=== PATIENT | male | born 1970 | race Caucasian/White ===

== ENCOUNTER 2016-11-13 01:15 | Observation (INO) ==
[2016-11-13] MEDS ORDERED: *HR* Labetalol 20 MG/4 ML SYRINGE IVP ONE (02:08)
--- NOTE | 2016-11-13 02:11 | Emergency Department Note ---
Disposition Clinical Impression: Vision loss of left eye Headache Qualifiers: Headache type: unspecified Headache chronicity pattern: unspecified pattern Intractability: not intractable Qualified Code(s): R51 - Headache Hypertension Qualifiers: Hypertension type: essential hypertension Qualified Code(s): I10 - Essential ( primary) hypertension Disposition: Admitted As Inpatient Condition: Good Referrals: NO,PCP [Primary Care Provider] - Forms: Work/School Release, ED Satisfaction Letter General Adult HPI - General Chief complaint: ED General Medical Stated complaint: high blood presure Time Seen by Provider: 11/13/16 01:55 Source: patient Mode of arrival: private vehicle Limitations: no limitations Nursing Notes Reviewed: Yes Vital Signs Reviewed: Yes - History of Present Illness HPI Narrative: Patient presents to the ED with complaint of high blood pressure. He was seen in this ED earlier today for extremely high blood pressure, headache and blurred vision in his left eye for a week. Head CT, labs and EKG were done at that time and were normal. He was set up for outpatient follow-up with ophthalmology tomorrow. He was started on metoprolol 50 mg twice a day after receiving labetalol here in the ED with improvement in his BP. States since he returned to [facility] his headache had gotten somewhat better and his lightheadedness had improved. He took his evening dose of metoprolol at 10 PM. States they checked his blood pressure shortly after that and it was 201/131. He was brought back to the ED for further evaluation. States headache and lightheadedness are still present and worsening again. No change in the vision in his left eye. No new symptoms. Blood pressure on arrival here was 184/126. Pain Scale: 0 - Related Data Previous Rx's Medication Instructions Recorded Metoprolol [Lopressor] 50 mg PO BID #30 tablet 11/12/16 Allergies Allergy/AdvReac Type Severity Reaction Status Date / Time No Known Allergies Allergy Verified 11/13/16 01:17 Constitutional: Denies: fever, chills, weakness, weight change Eyes: Reports: vision change. Denies: eye pain, eye discharge ENT ED: Denies: ear pain, throat pain, dental pain, hearing loss, epistaxis, congestion, dysphagia Cardiovascular: Denies: chest pain, palpitations, dyspnea on exertion, edema, syncope Respiratory: Denies: cough, dyspnea, wheezes, hemoptysis, stridor Gastrointestinal: Denies: abdominal pain, nausea, vomiting, diarrhea, constipation, hematemesis, melena, hematochezia Genitourinary: Denies: urgency, dysuria, frequency, hematuria Musculoskeletal: Denies: back pain, neck pain, arthralgia, myalgia Integumentary: Denies: rash, abrasion, lesions Neurological: Reports: headache. Denies: weakness, numbness, paresthesias, confusion, abnormal gait, vertigo Psychiatric: Denies: anxiety, depression, suicidal thoughts, homicidal thoughts , auditory hallucinations, visual hallucinations Endocrine: Denies: fatigue Hematological/Lymphatic: Denies: easy bleeding, easy bruising Allergic/Immunologic: Denies: facial swelling, urticaria Past Medical History - Past Medical History Medical history: Reports: hypertension, kidney stones, other Psychiatric history: Reports: no psych history - Social History Smoking Status: Current every day smoker Smokeless Tobacco Status: No Alcohol use: Reports: none Drug use: Reports: none Physical Exam - General Limitations: no limitations General appearance: alert, in no apparent distress - Head Head exam: atraumatic, normocephalic, normal inspection - Eye Eye exam: Present: normal appearance, PERRL, EOMI - ENT ENT exam: normal exam, normal oropharynx, mucous membranes moist - Neck Neck exam: Present: normal inspection, full ROM, trachea midline - Chest Chest inspection: Present: normal inspection, symmetric chest wall rise - Respiratory Respiratory exam: Present: normal lung sounds bilaterally - Cardiovascular Cardiovascular exam: Present: regular rate, normal rhythm, normal heart sounds - Abdominal Exam Abdominal exam: Present: soft, Non-Tender. Absent: tenderness, distention, guarding, rebound, rigidity - Extremities Exam Extremities exam: Present: normal inspection, full ROM. Absent: tenderness, pedal edema - Back Exam Back exam: Present: normal inspection, full ROM. Absent: tenderness - Neurological Exam Neurological exam: Present: alert, oriented X3, CN II-XII intact, reflexes normal. Absent: motor sensory deficit - Expanded Neurological Exam Speech: Present: fluid speech Motor strength - LUE: 5/5 Motor strength - RUE: 5/5 Motor strength - LLE: 5/5 Motor strength - RLE: 5/5 Course Course Narrative: Patient presents to the ED for recurrent hypertension and persistent headache and lightheadedness. He was given a dose of IV labetalol on arrival with initial improvement in blood pressure to 151/96. He was given Tylenol for his headache with some improvement. As he was continued to be monitored his blood pressure started increasing again, climbing to 162/114 followed by 174/110. He still has a persistent headache. Given his symptomatic hypertensive urgency patient will require admission for more aggressive blood pressure control. Discussed admission with the patient who is agreeable. I spoke to the hospitalist government services professional, Dr. Giron who has accepted the patient. - Reevaluation(s) Reevaluation #1: Patient is a resident at [facility] for [facility] and the staff member here with him has requested that their facility be notified when he is ready to be discharged and/or if he were to sign out AGAINST MEDICAL ADVICE. Time: 04:04 Vital Signs Temperature 97.1 F L 11/13/16 01:16 Pulse Rate 68 11/13/16 01:16 Respiratory Rate 17 11/13/16 01:16 Blood Pressure 184/124 11/13/16 01:16 O2 Sat by Pulse Oximetry 99 11/13/16 01:16 Temperature 98.8 F 11/13/16 03:31 Pulse Rate 67 11/13/16 03:31 Respiratory Rate 20 11/13/16 03:31 Blood Pressure 174/110 11/13/16 03:31 O2 Sat by Pulse Oximetry 100 11/13/16 03:31 Oxygen Delivery Oxygen Delivery Room Air Medical Decision Making - Differential Diagnosis Essential hypertension, hypertensive urgency - Medical Records Medical records reviewed: Yes I reviewed the patient's medical records.
[2016-11-13] MEDS ORDERED: Naloxone 0.4 MG/ML INJ IVP PRN ×2 (03:45→04:55)
[2016-11-13] MEDS ORDERED: *HR* Labetalol 20 MG/4 ML SYRINGE IVP PRN (04:55)
--- NOTE | 2016-11-13 11:24 | Internal Med History&Physical ---
Date of Encounter: 11/13/16 Time of Encounter: 10:30 Assessment and Plan (1) Hypertension Current visit: Yes Status: Chronic Blood pressures have improved with treatment in the emergency room. Continue metoprolol and add Norvasc to further improve blood pressure. Qualifiers: Hypertension type: essential hypertension Qualified Code(s): I10 - Essential (primary) hypertension (2) Headache Current visit: Yes Status: Acute Suspect due in part to elevated blood pressure. We will start him on Ultram and treat blood pressure as per above. Head CT in the emergency room showed no significant pathology. Qualifiers: Headache type: unspecified Headache chronicity pattern: unspecified pattern Intractability: not intractable Qualified Code(s): R51 - Headache (3) Hyperuricemia Current visit: Yes Status: Acute Will start him on allopurinol since uric acid level was elevated at .15 April 2014 and he has had multiple gout attacks. Repeat uric acid level will be done today and the patient can have follow-up at his appointment with Lindsay Dennison CNP next week. (4) Vision loss of left eye Current visit: Yes Status: Acute He is scheduled to see admissions gate attendant later today. Internal Medicine - H&P: HPI Chief complaint: Hypertension and left eye vision loss Admitted From: Home Plans for Post Hospital Care: Home History of present illness: Mr. Salazar is a 46 year old male who came to emergency room yesterday with complaints of headache and vision loss. He had been sent to Lindsay Dennison's office from a dentist office where he presented for dental work but was found to have markedly elevated blood pressure. The hypertension was confirmed at Lindsay Dennison's office and he was sent to emergency room where he was found to have markedly elevated blood pressure and elevated left eye IOP at 20 and 25 mm. He was given a prescription for metoprolol 50 mg twice a day and an appointment was made to see an admissions gate attendant in [facility] on November 13 at 2:30 PM. He returned to emergency room a few hours later complaining of ongoing headache. Blood pressure was again elevated. He was treated and admitted to [facility] for ongoing care needs. He states his headache has improved but his vision has not significantly changed from yesterday. He has previously been diagnosed with high blood pressure but has chosen not to follow with a PCP and take medication. He denies other cardiovascular problems such as CT heart failure chest pain DVT or pulmonary embolus. Past Med Surg Social Fam HX - Past Medical History Medical history: hypertension, kidney stones, other Psychiatric history: no psych history - Social History Smoking Status: Current every day smoker Packs per day: 1 PACK Smokeless Tobacco Status: No Alcohol use: none Drug use: none Internal Medicine - H&P: Meds Metoprolol [Lopressor] 50 mg PO BID #30 tablet 11/12/16 [Rx] Allergies No Known Allergies Allergy (Verified 11/13/16 01:17) All Systems PM: A 10-system review of systems was performed and is negative for pertinent findings except as documented above in the HPI. 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 Cardiovascular: As per history of present illness Respiratory: He has smoked since age 11 up to 1 pack per day. He has not had PFTs and does not wear home oxygen GI: He denies disorders of his liver gallbladder or exocrine pancreas : He had kidney stones in 2010 without recurrence. He denies other kidney bladder prostate disorders Neurologic: He denies large distribution strokes or seizures. CT of head done in the emergency room yesterday showed no significant pathology Endocrine: He denies diabetes or thyroid disease. Lipid profile done 2013 showed total cholesterol elevated 277, triglycerides 233, LDL 190, and total/HDL ratio 6.9. Hematology/oncology: She denies blood disorders cancers or anemia Psychiatric: He has diagnoses of anxiety and depression but does not use medication because he does not follow regularly with a PCP. Musk skeletal: He has been diagnosed with gout and has had multiple gout attacks. He has chosen not to take uric acid lowering medication and not follow with a PCP. He denies other bone joint or muscle disorders. - Constitutional Vitals: Temp Pulse Resp BP Pulse Ox 98.6 F 71 16 142/86 98 11/13/16 10:54 11/13/16 10:54 11/13/16 10:54 11/13/16 10:54 11/13/16 10:54 Exam: Gen.: He is a well-developed well-nourished male who appears in minimal discomfort at present time HEENT: Head is atraumatic and normocephalic. Eyes: EOMI. There is no scleral icterus. Mouth: Mucosa is moist Neck: Supple and nontender. There is no thyromegaly or adenopathy noted. Heart: Regular without murmurs gallops or ectopics Lungs: No wheezes or crackles are heard Abdomen: Soft and nontender. No masses or guarding are noted. Extremities: There is no cyanosis edema or clubbing noted. Dorsalis pedis and posterior tibial pulses are 2 over 2 bilaterally. Neurologic: Mental status: He is talkative and a good historian. Cranial nerves : Smile is symmetric. Forehead wrinkles bilaterally. Tongue protrudes midline. EOMI. Motor: There is no pronator drift. Cerebellar: Finger to nose is intact bilaterally Skin: Warm and dry - VTE Reasons for not Prescribing Prophylaxis: Treatment not Indicated - Low risk for VTE
--- NOTE | 2016-11-13 11:41 | Discharge Summary ---
Date of Encounter: 11/13/16 Time of Encounter: 10:30 - Discharge Diagnosis (1) Hypertension Priority: Primary Status: Chronic Qualifiers: Hypertension type: essential hypertension Qualified Code(s): I10 - Essential (primary) hypertension (2) Headache Priority: Secondary Status: Acute Qualifiers: Headache type: unspecified Headache chronicity pattern: unspecified pattern Intractability: not intractable Qualified Code(s): R51 - Headache (3) Hyperuricemia Priority: Secondary Status: Chronic (4) Vision loss of left eye Priority: Secondary Status: Acute - Discharge Medications Prescriptions: Allopurinol [Zyloprim 300 MG] 300 mg PO DAILY #30 tablet Amlodipine [Norvasc] 5 mg PO DAILY #30 tablet Tramadol HCl [Ultram] 50 mg PO QID PRN #20 tab PRN Reason: Pain Home Medications: Metoprolol [Lopressor] 50 mg PO BID #30 tablet 11/12/16 [Rx] Allopurinol [Zyloprim 300 MG] 300 mg PO DAILY #30 tablet 11/13/16 [Rx] Amlodipine [Norvasc] 5 mg PO DAILY #30 tablet 11/13/16 [Rx] Tramadol HCl [Ultram] 50 mg PO QID PRN #20 tab 11/13/16 [Rx] Allergies/Adverse Reactions: Allergies No Known Allergies Allergy (Verified 11/13/16 01:17) Date of admission: 11/13/16 03:50 Primary care physician: Lindsay Dennison CNP - Patient Status Disposition: Home, Self-Care Condition: Good Overall status at discharge: patient is progressing back to baseline - Discharge Instructions Follow Up With: Lindsay Dennison CNP [Advanced Practice Nurse] - 11/16/16 (Follow-up appointment 02/2017.) - Diet and Activity Activity: resume usual activities as tolerated Diet: advance to your usual diet Hospital course: Mr. Salazar is a 46 year old male who came to emergency room yesterday with complaints of headache and vision loss. He had been sent to Lindsay Dennison's office from a dentist office where he presented for dental work but was found to have markedly elevated blood pressure. The hypertension was confirmed at Lindsay Dennison's office and he was sent to emergency room where he was found to have markedly elevated blood pressure and elevated left eye IOP at 20 and 25 mm. He was given a prescription for metoprolol 50 mg twice a day and an appointment was made to see an tool mechanic in [facility] on November 13 at 2:30 PM. He returned to emergency room a few hours later complaining of ongoing headache. Blood pressure was again elevated. He was treated and admitted to [facility] for ongoing care needs. Initial orders were written by the emergency room physician. I saw him the morning of November 13 and performed the history and physical and discharge. His blood pressure returned to nonemergent level with the use of metoprolol and labetalol. I will add Norvasc to further improve the pressure. I explained to him his headache was likely due to the elevated blood pressure and will receive Ultram and antihypertensive medication at discharge. His vision loss will be addressed by an tool mechanic at appointment later today in [facility]. I started him on allopurinol 300 mg daily. A uric acid level was ordered with results pending at time of this dictation. He will follow-up with Lindsay Dennison CNP next week and she can review the uric acid results and adjust management as needed. I note on lab work April 2014 he had hyperlipidemia. I will let Lindsay Dennison CNP further address at a follow-up visit. He will be discharged from the hospital and follow in 3 days as scheduled at [facility]. - Time Spent with Patient Total time spent providing and/or coordinating discharge services: - Constitutional Vitals: Temp Pulse Resp BP Pulse Ox 98.6 F 71 16 142/86 98 11/13/16 10:54 11/13/16 10:54 11/13/16 10:54 11/13/16 10:54 11/13/16 10:54 - VTE Reasons for not Prescribing Prophylaxis: Treatment not Indicated - Low risk for VTE
[2016-11-13 12:23] VITALS: BP 146/92
== END 2016-11-13 13:12 | disposition home or self-care (01) ==
LOC: EMEROOPIK 01:15 → INPPIK 01:15
PROVIDERS: ADMIT Internal Medicine; ATTEND Internal Medicine